=== PATIENT | male | born 1970 | race Caucasian/White ===

== ENCOUNTER 2018-12-08 13:15 | Outpatient (CLI) ==
[2013-08-02 22:06] VITALS: BMI 29.9
--- NOTE | 2018-12-08 14:18 | DI ---
EXAM: Two views of the chest. History: Chest pain and back pain. Comparison: Chest radiograph 08/13/2016 Findings: Heart size is normal. No focal consolidation. No appreciable pleural fluid and no pneumo thorax. No acute osseous abnormalities. Impression: No acute cardiopulmonary process
== END 2018-12-08 13:16 | disposition home or self-care (01) ==
LOC: RAD 13:15
PROVIDERS: ATTEND Internal Medicine
DX: M54.9 Dorsalgia, unspecified (principal); N18.3 Chronic kidney disease, stage 3 (moderate)

== ENCOUNTER 2023-06-29 09:06 | Observation (INO) ==
[2023-06-29] MEDS ORDERED: DUONEB NEB ONE (09:35)
--- NOTE | 2023-06-29 09:47 | ED.PDOC ---
General ED Provider: Dr. SANDRA FAUSTIN MD Chief Complaint: Respiratory Complaint Stated Complaint: Cc: SOB and Dyspnea on exertion. Had some moderate dull headache, generalized body aches and coughing. Notice his lips was slightly blue on Wednesday, especially when he get up to shower or do a load of laundry. Had temp of 100 on Wednesday. No sore throat but chronic nasal drainage. This AM, his chest feels tight like someone is "bear-hugging him" Still occasional cough, non-productive. Wheezing at time. "Just can't catch his breath" and reported his sat was in the high 80's. No history of HTN, DM, COPD or cardiac history. Hx of elevated lipids. Doesn't smoke. Had COVID vaccine and booster last year. 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 Time Seen by Provider: 06/29/23 09:25 Mode of Arrival: Walk-In Information Source: Patient Exam Limitations: No limitations Primary Care Provider: CARLOS BACON MD Referred to ED by: Other (self) Nursing and Triage Documentation Reviewed and Agree: Yes Respiratory Complaint Exam Shortness of Air Complaint/Exam Onset/Duration: Wednesday Symptoms Are: Worse Timing: Intermittent Initial Severity: Moderate Current Severity: Moderate Character: Reports Dyspnea on exertion Aggravating: Reports Movement (exertion) Alleviating: Reports Upright position Associated Signs and Symptoms: Reports Cough, Wheezing, Chest pain with cough, Fever and Diaphoresis; Denies Chest pain, Calf pain, Edema or Rapid breathing History of Healthcare-Acquired Pneumonia: No Pulmonary Embolism Risk Factors: Denies Previous PE or Smoking Cardiac Risk Factors: Reports Elevated lipids; Denies Smoking, Diabetes, Hypertension or CHF Home Oxygen Use: No Recent Stress Test: No Respiratory Distress: Moderate Stridor Present: No Tracheal Deviation: No Subcutaneous Emphysema: No Accessory Muscle Use: No Retractions: Not Present Diminished Breath Sounds: Yes Prolonged Expiratory Phase: No Unable to Speak Full Sentences: No Leg Swelling: Yes Jb's Sign Present: No Grunting Respirations: No Kussmaul Respirations: No Differential Diagnoses: CHF, Pulmonary Edema, Pneumonia, Pneumothorax and Pulmonary Embolism Quality Indicators for AMI: ASA Given if indicated Quality Indicator For Non-Traumatic Chest Pain/Syncope: EKG Performed Review of Systems Review Of Systems Constitutional: Reports Fever and Weakness Eyes: Reports No symptoms; Denies Photophobia Ears, Nose, Mouth, Throat: Reports Nose discharge; Denies Ear pain, Ear discharge, Nose pain or Throat swelling Respiratory: Reports Cough, Shortness of Breath and Wheezing Cardiac: Denies Chest pain or Edema GI: Reports No symptoms : Reports No symptoms Musculoskeletal: Reports Muscle pain (myalgia) Skin: Reports No symptoms Neurological: Reports Headache All Other Systems: Reviewed and Negative [facility] Medical History (Updated 06/29/23 @ 14:03 by SANDRA FAUSTIN MD) Compression fracture of body of thoracic vertebra S22.000A - Wedge compression fracture of unspecified thoracic vertebra, initial encounter for closed fracture (ICD-10) History of herpes zoster Z86.19 - Personal history of other infectious and parasitic diseases (ICD- 10) Social History Smoking and tobacco status: Never smoker Physical Exam Physical Exam Appearance: Reports Ill-appearing Ill-appearing: Mild Pain Distress: Mild Eyes: Reports BONNY and EOMI ENT: Reports Ears normal Neck: Supple Respiratory: Reports Breath sounds diminished, Respirations nonlabored and Rhonchi; Denies Wheezes or Retractions Cardiovascular: Reports RRR, Pulses normal, No rub and No murmur GI/: Reports Soft, Nontender, No masses, Bowel sounds normal and No Organomegaly Musculoskeletal: Reports Normal strength, ROM intact and No edema Skin: Reports Warm, Dry and Normal color Neurological: Reports Sensation intact and Motor intact Psychiatric: Reports Affect appropriate and Mood appropriate Critical Care Note Critical Care Note Total Critical Care Time (mins): 0 Course Course 06/29/23 09:50 06/29/23 09:50 Orders, Labs, Meds: Lab Review 06/29/23 06/29/23 06/29/23 09:15 09:50 12:17 WBC 5.35 RBC 5.26 Hgb 15.8 Hct 46.4 MCV 88.2 MCH 30.0 MCHC 34.1 RDW Coeff of Jerman 12.4 Plt Count 204 Immature Gran % (Auto) 0.9 Neut % (Auto) 50.8 Lymph % (Auto) 30.7 [place] % (Auto) 13.1 H Eos % (Auto) 3.6 Baso % (Auto) 0.9 Neut # (Auto) 2.7 Lymph # (Auto) 1.6 [place] # (Auto) 0.7 Eos # (Auto) 0.2 Baso # (Auto) 0.1 Immature Gran # (Auto) 0.1 Sodium 137.4 Potassium 4.11 Chloride 103.6 Carbon Dioxide 25.7 Anion Gap 12.21 BUN 14.0 Creatinine 1.06 Estimated GFR (MDRD) 74.00 BUN/Creatinine Ratio 13.20 Glucose 112.8 H Calcium 9.09 Total Bilirubin 0.63 AST 52.7 ALT 29.5 Alkaline Phosphatase 66.6 Troponin I < 0.012 < 0.012 NT-Pro-B Natriuret Pep < 20 Total Protein 8.25 H Albumin 4.60 Globulin 3.65 Albumin/Globulin Ratio 1.26 D-Dimer 289.93 Influ A Molecular Assay Negative by naat Influ B Molecular Assay Negative by naat SARS CoV-2 RNA Rapid FRANCHESKA Negative Orders Category Date Time Status EKG-(ED ONLY) Stat CARDIO 06/29/23 09:35 Completed NEBULIZER TREATMENT Routine CARDIO 06/29/23 11:30 Completed NEBULIZER TREATMENT Routine CARDIO 06/29/23 11:36 Ordered NPO REMINDER: IMAGING ONCE CARE 06/29/23 12:28 Active Saline Lock [ED IV/MEDIPORT/POWERPORT] .ONCE EMERGENCY 06/29/23 09:35 Active CBC W/ AUTO DIFF Stat LAB 06/29/23 09:50 Completed CMP [COMPREHENSIVE METABOLIC PANEL] Stat LAB 06/29/23 09:50 Completed D-DIMER Stat LAB 06/29/23 09:50 Completed FLU A & B MOLECULAR [FLU A/B MOLECULAR] Stat LAB 06/29/23 09:15 Completed NT-PROBNP(ED) Stat LAB 06/29/23 09:50 Completed SARS COV-2 RNA RAPID FRANCHESKA Stat LAB 06/29/23 09:15 Completed TROPONIN I Stat LAB 06/29/23 09:50 Completed TROPONIN I Stat LAB 06/29/23 12:17 Completed 0.9 % Sodium Chloride [Saline Flush] Meds 06/29/23 09:35 Active 1 syr IVF PRN PRN Albuterol Sulfate 0.083% Neb [Albuterol 0.083% Neb] Meds 06/29/23 11:35 Discontinued 2.5 mg NEB ONCE ONE Albuterol Sulfate 0.083% Neb [Albuterol 0.083% Neb] Meds 06/29/23 14:00 Active 2.5 mg NEB RTTID Aspirin [Aspirin Chewable] Meds 06/29/23 09:52 Discontinued 324 mg PO ONCE STA Dexamethasone Sod Phosphate [Decadron] Meds 06/29/23 13:25 Discontinued 4 mg IVP ONCE STA Ipratropium/Albuterol Neb [Duoneb] Meds 06/29/23 09:35 Discontinued 3 ml NEB ONCE ONE Methylprednisolone Sod Succ/Pf [Solu-Medrol 125 mg] Meds 06/29/23 11:40 Discontinued 80 mg IVP ONCE ONE Methylprednisolone Sod Succ/Pf [Solu-Medrol 125 mg] Meds 06/29/23 12:00 Discontinued 80 mg IVP ONCE ONE CHEST, 2 VIEWS PA & LAT Stat RADS 06/29/23 09:35 Completed CTA CHEST PE PROTOCOL Stat RADS 06/29/23 12:28 Completed Medications Generic Name Dose Route Start Last Admin Trade Name Freq PRN Reason Stop Dose Admin Albuterol Sulfate 2.5 mg 06/29/23 14:00 06/29/23 13:50 Albuterol Sulfate 0.083% Vial.Neb NEB 2.5 mg RTTID CARMINE Administration Sodium Chloride 1 syr 06/29/23 09:35 0.9% Sodium Chloride 10 Ml Disp.Syrin IVF PRN PRN To flush IV Discontinued Medications Generic Name Dose Route Start Last Admin Trade Name Freq PRN Reason Stop Dose Admin Albuterol Sulfate 2.5 mg 06/29/23 11:35 06/29/23 11:46 Albuterol Sulfate 0.083% Vial.Neb NEB 06/29/23 11:36 2.5 mg ONCE ONE Administration Albuterol/Ipratropium 3 ml 06/29/23 09:35 06/29/23 09:45 Ipratropium/Albuterol Vial.Neb NEB 06/29/23 09:36 3 ml ONCE ONE Administration Aspirin 324 mg 06/29/23 09:52 06/29/23 09:59 Aspirin 81 Mg Tab.Chew PO 06/29/23 09:53 324 mg ONCE STA Administration Dexamethasone Sodium Phosphate 4 mg 06/29/23 13:25 06/29/23 13:43 Dexamethasone Sod Phos 4 Mg/Ml Inj IVP 06/29/23 13:26 Not Given ONCE STA Methylprednisolone Sodium Succinate 80 mg 06/29/23 12:00 Methylprednisolone Sod Succ/Pf 125 Mg/2 Ml Vial IVP 06/29/23 12:01 ONCE ONE Methylprednisolone Sodium Succinate 80 mg 06/29/23 11:40 06/29/23 11:48 Methylprednisolone Sod Succ/Pf 125 Mg/2 Ml Vial IVP 06/29/23 11:41 80 mg ONCE ONE Administration Vital Signs: Temp Pulse Resp BP Pulse Ox 06/29/23 09:07 98.4 F 89 24 H 166/104 H 97 Discharge Plan Discharge Patient Disposition: PLACED OBSERVATION Discharge Problem: Acute dyspnea Prescriptions: No Action atorvastatin 20 mg tablet 20 mg PO BEDTIME Qty: 90 1RF omeprazole 20 mg capsule,delayed release(DR/EC) See Rx Instructions .ROUTE .COMPLEX Qty: 90 1RF Dose Instruction: TAKE ONE CAPSULE BY MOUTH DAILY Rx Instructions: TAKE ONE CAPSULE BY MOUTH DAILY Claritin Liqui-Gel 10 MG capsule 10 mg PO DAILY Nexletol 180 mg tablet 180 mg PO QDAY Qty: 90 1RF Did you review [place] LAYOUT ARTIST for ALL controlled substances?: Not Applicable ED Provider: SANDRA FAUSTIN Condition: Fair Physician Progress Note: [] Time is 1400 hr. Devyn had stop by to see patient and said he'll very likely admit. We were waiting for 2nd troponin (negative) and CTA of chest neg for PE but some diffuse vague areas of ground glass density. Discussed with hospitalist about admission. Call back to Devyn and busy and not taking messages- will call him back.
[2023-06-29] MEDS ORDERED: ASPIRIN CHEWABLE PO STA (09:52)
[2023-06-29 09:56] LABS: BASOPHILS # (AUTO) 0.1 K/uL (0-0.2); BASOPHILS % (AUTO) 0.9 % (0.0-3.0); EOSINOPHILS # (AUTO) 0.2 K/ul (0.0-0.7); EOSINOPHILS % (AUTO) 3.6 % (0.0-7.0); HEMATOCRIT 46.4 % (42.0-52.0); HEMOGLOBIN 15.8 g/dl (14.0-18.0); IMMATURE GRANULOCYTE # (AUTO) 0.1 (0.0-1.0); IMMATURE GRANULOCYTE % (AUTO) 0.9 % (0.0-5.0); LYMPHOCYTES # (AUTO) 1.6 K/uL (0.60-3.4); LYMPHOCYTES % (AUTO) 30.7 (10.0-50.0); MEAN CORPUSCULAR HGB CONC 34.1 (31.8-35.4); MEAN CORPUSCULAR VOLUME 88.2 fl (80.0-94.0); MONOCYTES # (AUTO) 0.7 K/uL (0.4-2.0); MONOCYTES % (AUTO) 13.1 (0-10); NEUTROPHILS # (AUTO) 2.7 K/ul (2.0-6.9); NEUTROPHILS % (AUTO) 50.8 % (42.2-75.2); PLATELET COUNT 204 10^3/uL (140-440); RDW COEFFICIENT OF VARIATION 12.4 % (11.6-14.8); RED BLOOD COUNT 5.26 10^6/ul (4.70-6.10); WHITE BLOOD COUNT 5.35 K/ul (4.2-10.2)
[2023-06-29 10:09] LABS: ALANINE AMINOTRANSFERASE 29.5 U/L (0-50); ALKALINE PHOSPHATASE 66.6 U/L (38-126); ASPARTATE AMINO TRANSFERASE 52.7 U/L (17-59); BILIRUBIN,TOTAL 0.63 mg/dL (0.2-1.3); CALCIUM 9.09 mg/dL (8.4-10.2); CARBON DIOXIDE 25.7 mmol/L (22-30.0); CHLORIDE 103.6 mmol/L (98-107); CREATININE 1.06 mg/dL (0.60-1.10); GLUCOSE 112.8 mg/dL (74-106); POTASSIUM 4.11 mmol/L (3.5-5.1); SODIUM 137.4 mmol/L (134.5-145); TOTAL PROTEIN 8.25 g/dL (6.3-8.2)
--- NOTE | 2023-06-29 10:11 | DI ---
EXAM: CHEST, 2 VIEWS. HISTORY: Dyspnea COMPARISON: 12/08/2018 FINDING/IMPRESSION: Cardiomediastinal countours appear stable. There is no focal pulmonary consolid ation. No pleural effusion or pneumothorax. No acute cardiopulmonary process.
[2023-06-29 10:13] LABS: MOLECULAR FLU A NEGATIVE BY NAAT (NEGATIVE); MOLECULAR FLU B NEGATIVE BY NAAT (NEGATIVE)
[2023-06-29 10:22] LABS: TROPONIN I < 0.012 ng/ml (0.0000-0.120)
[2023-06-29 10:33] LABS: SARS COV-2 RNA RAPID NAAT NEGATIVE (NEGATIVE)
[2023-06-29] MEDS ORDERED: SOLU-MEDROL 40 MG IVP ONE (11:30)
[2023-06-29] MEDS ORDERED: ALBUTEROL 0.083% NEB NEB ONE (11:35)
[2023-06-29] MEDS ORDERED: SOLU-MEDROL 125 MG IVP ONE ×4 (11:40→21:00)
[2023-06-29] MEDS ORDERED: DECADRON IVP STA (13:25)
--- NOTE | 2023-06-29 13:59 | CT ---
EXAM: CHEST CTA WITH CONTRAST (PULMONARY ARTERY) HISTORY: Chest pain and shortness of breath. TECHNIQUE: CTA acquisition of the chest from the thoracic inlet to the upper abdomen following IV con trast administration timed to filling of the pulmonary artery. 3D/MIP/VR images were utilized. CT Dose Reduction Techniques Employed: Yes. COMPARISON: None. FINDINGS: Pulmonary Embolism: - Diagnostic quality: Adequate. - Central (Main/Lobar/Interlobar): No embolus. - Peripheral (Segmental/Subsegmental): No embolus. Lung Parenchyma and Airways: There are diffuse vague areas of ground-glass density which could be rel ated to small airways disease or gas trapping. No suspicious pulmonary nodule. No pleural effusion o r thickening. No pneumothorax. Thoracic Inlet, Mediastinum, and Bridgett: No mass. No lymphadenopathy. Heart, Vessels, and Pericardium: No aortic anuerysm. The heart chambers are not enlarged. There is n o pericardial effusion or thickening. Bones and Soft Tissues: There is no fracture or lytic lesion. Chest wall soft tissues are unremarkab le. Upper Abdomen: There has been cholecystectomy. IMPRESSION: 1. No evidence of pulmonary artery embolism. 2. Findings suggesting diffuse pulmonary gas trapping or small airways disease/bronchiolitis. All CT scans are performed using dose optimization techniques as appropriate to the performed exam an d include at least one of the following: Automated exposure control, adjustment of the mA and/or kV according t o size, and the use of iterative reconstruction technique.
[2023-06-29] MEDS ORDERED: ALBUTEROL 0.083% NEB NEB SCH (14:00)
[2023-06-29 15:06] VITALS: BMI 33.3
[2023-06-29 15:07] LABS: ABG O2 HGB 93.6 % (95-100); ABG PH 7.43 (7.35-7.45); BEecf 1.6 (-2.0-3.0); COHb 1.4 (0.5-1.5); HCO3 25.9 (21-28); MetHb 0.8 (0-1.5); TCO2 27.1 (19-24); sO2 94.5 % (94-98); tHb 16.3 g/dl (11.7-17.4)
[2023-06-29] MEDS: DEXTROSE 5%-1/2NS IV SOLUTION 1,000 ML IV SCH (15:42)
[2023-06-29 17:27] LABS: BILIRUBIN,URINE Negative (NEGATIVE); CLARITY,URINE Clear (CLEAR); COLOR,URINE Yellow (YELLOW); GLUCOSE, URINE (UA) Negative (NEGATIVE); KETONES,URINE Negative (NEGATIVE); LEUKOCYTE ESTERASE ,URINE Negative (NEGATIVE); NITRITE,URINE Negative (NEGATIVE); PROTEIN,URINE 2+ (NEGATIVE); URINE, BLOOD Trace-intact (NEGATIVE); UROBILINOGEN,URINE 0.2 (0.2)
[2023-06-29 17:59] LABS: URINE RBC, MICROSCOPIC 0-2 (0-2)
[2023-06-29] MEDS: DUONEB NEB SCH (19:45)
[2023-06-29] MEDS: DOXYCYCLINE HYCLATE PO SCH (20:42)
[2023-06-29] MEDS: SOLU-MEDROL 125 MG IVP SCH (20:42)
[2023-06-30] MEDS: DEXTROSE 5%-1/2NS IV SOLUTION 1,000 ML IV SCH (02:53)
[2023-06-30] MEDS: DUONEB NEB SCH ×4 (04:50→19:57)
[2023-06-30] MEDS: SOLU-MEDROL 125 MG IVP SCH ×3 (05:47→20:41)
[2023-06-30] MEDS: PRILOSEC PO SCH (05:47)
[2023-06-30 07:07] LABS: BASOPHILS % (AUTO) 0.1 % (0.0-3.0); HEMATOCRIT 41.7 % (42.0-52.0); HEMOGLOBIN 14.3 g/dl (14.0-18.0); IMMATURE GRANULOCYTE # (AUTO) 0.1 (0.0-1.0); IMMATURE GRANULOCYTE % (AUTO) 0.8 % (0.0-5.0); LYMPHOCYTES # (AUTO) 0.8 K/uL (0.60-3.4); LYMPHOCYTES % (AUTO) 5.3 (10.0-50.0); MEAN CORPUSCULAR HEMOGLOBIN 30.3 pg (27.0-31.0); MEAN CORPUSCULAR HGB CONC 34.3 (31.8-35.4); MEAN CORPUSCULAR VOLUME 88.3 fl (80.0-94.0); MONOCYTES # (AUTO) 0.7 K/uL (0.4-2.0); MONOCYTES % (AUTO) 4.9 (0-10); NEUTROPHILS # (AUTO) 12.6 K/ul (2.0-6.9); NEUTROPHILS % (AUTO) 88.9 % (42.2-75.2); PLATELET COUNT 204 10^3/uL (140-440); RDW COEFFICIENT OF VARIATION 12.2 % (11.6-14.8); RED BLOOD COUNT 4.72 10^6/ul (4.70-6.10); WHITE BLOOD COUNT 14.16 K/ul (4.2-10.2)
[2023-06-30 07:24] LABS: ALBUMIN 4.16 g/dL (3.5-5.0); ALKALINE PHOSPHATASE 52.4 U/L (38-126); ASPARTATE AMINO TRANSFERASE 37.7 U/L (17-59); BILIRUBIN,TOTAL 0.44 mg/dL (0.2-1.3); BLOOD UREA NITROGEN 19.3 mg/dL (9-20); CALCIUM 8.64 mg/dL (8.4-10.2); CARBON DIOXIDE 22.6 mmol/L (22-30.0); CHLORIDE 102.8 mmol/L (98-107); CREATININE 1.15 mg/dL (0.60-1.10); GLUCOSE 230.4 mg/dL (74-106); POTASSIUM 3.74 mmol/L (3.5-5.1); SODIUM 135.3 mmol/L (134.5-145); TOTAL PROTEIN 7.26 g/dL (6.3-8.2)
[2023-06-30 07:35] LABS: ALANINE AMINOTRANSFERASE 38.5 U/L (0-50)
[2023-06-30] MEDS: CLARITIN PO SCH (08:46)
[2023-06-30] MEDS: DOXYCYCLINE HYCLATE PO SCH ×2 (08:46→20:40)
[2023-06-30] MEDS: BEMPEDOIC ACID 180 MG PO SCH (08:46)
[2023-06-30] MEDS: LIPITOR PO SCH (08:46)
[2023-06-30 09:10] LABS: ABG O2 HGB 94.2 % (95-100); ABG PH 7.41 (7.35-7.45); BEecf -1.8 (-2.0-3.0); COHb 1.3 (0.5-1.5); HCO3 22.8 (21-28); MetHb 0.9 (0-1.5); TCO2 23.9 (19-24)
[2023-06-30] MEDS: CARDIZEM PO SCH ×2 (12:48→20:40)
[2023-07-01] MEDS: DUONEB NEB SCH ×2 (04:47→10:16)
[2023-07-01] MEDS: SOLU-MEDROL 125 MG IVP SCH ×2 (05:25→12:55)
[2023-07-01 05:47] LABS: HEMOGLOBIN 14.1 g/dl (14.0-18.0); IMMATURE GRANULOCYTE # (AUTO) 0.2 (0.0-1.0); LYMPHOCYTES % (AUTO) 4.7 (10.0-50.0); MEAN CORPUSCULAR HEMOGLOBIN 30.2 pg (27.0-31.0); MEAN CORPUSCULAR HGB CONC 33.6 (31.8-35.4); MEAN CORPUSCULAR VOLUME 89.9 fl (80.0-94.0); MONOCYTES # (AUTO) 1.3 K/uL (0.4-2.0); MONOCYTES % (AUTO) 6.4 (0-10); NEUTROPHILS # (AUTO) 17.9 K/ul (2.0-6.9); NEUTROPHILS % (AUTO) 87.9 % (42.2-75.2); PLATELET COUNT 220 10^3/uL (140-440); RDW COEFFICIENT OF VARIATION 12.6 % (11.6-14.8); RED BLOOD COUNT 4.67 10^6/ul (4.70-6.10)
[2023-07-01 05:49] LABS: WHITE BLOOD COUNT 20.41 K/ul (4.2-10.2)
[2023-07-01 05:50] LABS: ALBUMIN 4.05 g/dL (3.5-5.0); ALKALINE PHOSPHATASE 53.5 U/L (38-126); ASPARTATE AMINO TRANSFERASE 34.1 U/L (17-59); BILIRUBIN,TOTAL 0.36 mg/dL (0.2-1.3); BLOOD UREA NITROGEN 23.6 mg/dL (9-20); CALCIUM 8.82 mg/dL (8.4-10.2); CARBON DIOXIDE 23.5 mmol/L (22-30.0); CHLORIDE 104.6 mmol/L (98-107); CREATININE 1.11 mg/dL (0.60-1.10); GLUCOSE 225.9 mg/dL (74-106); POTASSIUM 4.6 mmol/L (3.5-5.1); SODIUM 136.4 mmol/L (134.5-145); TOTAL PROTEIN 6.92 g/dL (6.3-8.2)
[2023-07-01 06:08] LABS: ALANINE AMINOTRANSFERASE 34.8 U/L (0-50)
[2023-07-01] MEDS: DOXYCYCLINE HYCLATE PO SCH (09:36)
[2023-07-01] MEDS: PRILOSEC PO SCH (09:36)
[2023-07-01] MEDS: CLARITIN PO SCH (09:36)
[2023-07-01] MEDS: CARDIZEM PO SCH (09:37)
[2023-07-01] MEDS: BEMPEDOIC ACID 180 MG PO SCH (09:37)
[2023-07-01] MEDS: LIPITOR PO SCH (09:37)
[2023-07-01 09:43] VITALS: RESP 18
--- NOTE | 2023-07-01 10:04 | PCM.PROG ---
Attending Provider: ATTENDING PROVIDER: Dr. CARLOS BACON MD This patient is seen with Tika Freeman, Nurse Practitioner. DATE OF SERVICE: 07/01/23 SUBJECTIVE: This 52 year old /WHITE M was hospitalized 06/29/23. Sating 95% on room air. Has been up and moving around. Feels shortness of breath has significantly improved. States cough is now becoming productive. Respiratory panel is pending. REVIEW OF SYSTEMS: CONSTITUTIONAL: No night sweats. No fatigue, malaise, lethargy. No fever or chills. HEENT: Eyes: No visual changes. No eye pain. No eye discharge. ENT: No runny nose. No epistaxis. No sinus pain. No odynophagia. No congestion. RESPIRATORY: Cough, no congestion. No hemoptysis. Shortness of breath. CARDIOVASCULAR: No angina symptoms. No CHF symptoms. No atypical chest pain for CAD. No palpitations. No orthopnea.. GASTROINTESTINAL: No abdominal pain. No nausea or vomiting. No diarrhea or constipation. No hematemesis. No hematochezia. GENITOURINARY: No urgency. No frequency. No dysuria. No hematuria. No obstructive symptoms. No discharge. No pain. No significant abnormal bleeding. MUSCULOSKELETAL: No musculoskeletal pain; no joint swelling. NEUROLOGICAL: Awake, alert, oriented to time, place and person. No headache. No neck pain. No syncope. No seizures. No dizziness. PSYCHIATRIC: Not anxious. No depression. No suicidal thoughts. No homicidal thoughts. SKIN: No rash. No lesions. No wounds. ENDOCRINE: No unexplained weight loss. No weight gain. HEMATOLOGIC/LYMPHATIC: No anemia. No purpura. No petechiae. No prolonged or excessive bleeding. No palpable lymph nodes. PHYSICAL EXAMINATION: GENERAL: The patient is awake, alert and oriented, sitting in bed in no distress. VITAL SIGNS: Temperature 98.6 F, Pulse 100, Respiratory Rate 19, BP 137/74, Pulse Ox 96% HEENT: Head normocephalic, atraumatic. Eyes: Extraocular muscles are intact. Pupils are equal, round and reactive to light and accommodation. Ears: No lesions. Nose appeared normal. Throat: No exudate or erythema. NECK: Supple. No JVD, no carotid bruit. No lymphadenopathy or thyromegaly. LUNGS: Severely diminished breath sounds. Clear to auscultation. Percussion note normal. Chest symmetrical. HEART: S1, S2, no S3. No murmurs. No cyanosis or clubbing. No ascites. Pulses: Dorsalis pedis and posterior tibial pulses +1 to +2 both sides. ABDOMEN: Soft. Non-tender. Bowel sounds active. No CVA tenderness. No mass felt. EXTREMITIES: No edema. Full range of motion of all extremities, equal. NEUROLOGIC: No focal deficit. Cranial nerves II through XII are grossly intact. No headache. No double vision. SKIN: Not dry. Intact. Turgor-normal. LYMPHATIC: No palpable lymph nodes/no lymphedema. MUSCULOSKELETAL: Normal joints with no swelling. Muscle tone is normal. LAB REVIEW: 07/01/23 05:00 07/01/23 05:00 07/01/23 05:00: WBC 20.41 H D, RBC 4.67 L, Hgb 14.1, Hct 42.0, MCV 89.9, MCH 30.2, MCHC 33.6, RDW Coeff of Jerman 12.6, Plt Count 220, Immature Gran % (Auto) 1.0, Neut % (Auto) 87.9 H, Lymph % (Auto) 4.7 L, [place] % (Auto) 6.4, Eos % (Auto) 0.0, Baso % (Auto) 0.0, Neut # (Auto) 17.9 H, Lymph # (Auto) 1.0, [place] # (Auto) 1.3, Eos # (Auto) 0.0, Baso # (Auto) 0.0, Immature Gran # (Auto) 0.2, Sodium 136.4, Potassium 4.60, Chloride 104.6, Carbon Dioxide 23.5, Anion Gap 12.90, BUN 23.6 H, Creatinine 1.11 H, Estimated GFR (MDRD) 70.00, BUN/Creatinine Ratio 21.26, Glucose 225.9 H, Calcium 8.82, Total Bilirubin 0.36, AST 34.1, ALT 34.8, Alkaline Phosphatase 53.5, Total Protein 6.92, Albumin 4.05, Globulin 2.87, Albumin/Globulin Ratio 1.41 06/30/23 09:05: Puncture Site Rrad, Base Excess -1.8, O2 Saturation 95.0, ABG pH 7.41, ABG pCO2 36.0, ABG pO2 75.0 L, ABG HCO3 22.8, ABG Total CO2 23.9, Jeramie Test Pos, Hemoglobin 0.9, Oxyhemoglobin 94.2 L, Carboxyhemoglobin 1.3, Total Hemoglobin 16.0, FiO2 % 21.0 06/30/23 07:02: Hemoglobin A1c 6.05 H ASSESSMENT: Please see below. 1. Acute respiratory failure 2. Shortness of breath 3. Acute bronchitis. PLAN: 1. Discharge home 2. Prednisone 20mg BID for three days then daily for 4 days 3. Albuterol inhaler two puff TID 4. PFT 5. Three step 6. Doxycycline 100mg BID for 7 days Plan and coordination of the patient's care discussed in the presence of Nurse Research and nurse. SCRIBED BY: Shweta DOWNS scribed while in presence of service performed by Tika Freeman APRN on 07/01/23 ([id number])
[2023-07-01 11:28] VITALS: BP 131/70; PULSE 93; TEMP 97.7
[2023-07-01 12:14] LABS: IGG P18 AB Absent (.); IGG P23 AB Absent (.); IGG P28 AB Absent (.); IGG P30 AB Absent (.); IGG P39 AB Absent (.); IGG P41 AB Absent (.); IGG P45 AB Absent (.); IGG P58 AB Absent (.); IGG P66 AB Absent (.); IGG P93 AB Absent (.); IGM P23 AB Absent (.); IGM P39 AB Absent (.); IGM P41 AB Absent (.); LYME IGG WB INTERP Negative (.); LYME IGM WB INTERP Negative (.)
--- NOTE | 2023-07-01 14:29 | PN ---
DATE OF SERVICE: 06/30/23 SUBJECTIVE: 52 year old white male has been hospitalized with acute respiratory failure, acute dyspnea along with history of fever for 2-3 days, low grade. The patient's condition seems to have improved but he is still short of breath on exertion. He says that he chewed tobacco last night and that triggered his shortness of breath for a while. REVIEW OF SYSTEMS: CONSTITUTIONAL: No night sweats. No fatigue, malaise, lethargy. No fever or chills. HEENT: Eyes: No visual changes. No eye pain. No eye discharge. ENT: No runny nose. No epistaxis. No sinus pain. No sore throat. No odynophagia. No congestion. RESPIRATORY: No cough, no congestion. No hemoptysis. No shortness of breath. CARDIOVASCULAR: No angina symptoms. No CHF symptoms. No atypical chest pain for CAD. No palpitations. No PND. No orthopnea. GASTROINTESTINAL: No abdominal pain. No nausea or vomiting. No diarrhea or constipation. No hematemesis. No hematochezia. Appetite is practically normal. GENITOURINARY: No urgency. No frequency. No dysuria. No hematuria. No obstructive symptoms. No discharge. No pain. No significant abnormal bleeding. MUSCULOSKELETAL: No musculoskeletal pain; no joint swelling. NEUROLOGICAL: No headache. No neck pain. No syncope. No seizures. No dizziness. PSYCHIATRIC: Not anxious. No depression. No suicidal thoughts. No homicidal thoughts. SKIN: No rash. No lesions. No wounds. ENDOCRINE: No unexplained weight loss. No weight gain. HEMATOLOGIC/LYMPHATIC: No anemia. No purpura. No petechiae. No prolonged or excessive bleeding. No palpable lymph nodes. PHYSICAL EXAMINATION: GENERAL: The patient is oriented to time, place and person. VITAL SIGNS: Temperature 98, pulse 100, respiratory rate 20, blood pressure 124/77 and pulse ox 95% on room air. HEENT: Head normocephalic, atraumatic. Eyes: Extraocular muscles are intact. Pupils are equal, round and reactive to light and accommodation. Ears: No lesions. Nose appeared normal. Throat: No exudate or erythema. NECK: Supple. No JVD, no carotid bruit. No lymphadenopathy or thyromegaly. LUNGS: Decreased breath sounds but clear to auscultation. Percussion note normal. Chest symmetrical. HEART: S1, S2, no S3. No murmurs. No cyanosis or clubbing. No ascites. Pulses: Dorsalis pedis and posterior tibial pulses +1 to +2 bilaterally. ABDOMEN: Soft. Nontender. Bowel sounds active. No CVA tenderness. No mass felt. EXTREMITIES: No edema. Full range of motion of all extremities, equal. NEUROLOGIC: No focal deficit. Cranial nerves II through XII are grossly intact. No headache. No double vision. SKIN: Not dry. Intact. Turgor - normal. LYMPHATIC: No palpable lymph nodes/no lymphedema. MUSCULOSKELETAL: Normal joints with no swelling. Muscle tone is normal. LABS: Creatinine 1.1, BUN 19, potassium 3.7, WBC 14,000 because of steroids, Hgb 14, blood sugar 230. A1c a couple of months ago was 5.6 ASSESSMENT: 1. Shortness of breath, abnormal CT angiogram with ground glass on the right. 2. Viral syndrome with symptoms. PLAN: 1. Continue steroids, antibiotics 2. Monitor telemetry 3. ABG on room air to be repeated. 4. Oxygen saturation 5. Will do PFT 6. Echo to evaluation function TIME SPENT: More than 35 minutes. Plan and coordination of the patient's care discussed in the presence of nurse. NEFTALI
--- NOTE | 2023-07-01 14:49 | PN ---
DATE OF SERVICE: 07/01/23 SUBJECTIVE: The patient was seen and examined by Nurse Practitioner. The patient's condition has improved, he is asymptomatic. His oxygen saturation is 97% on room air. REVIEW OF SYSTEMS: CONSTITUTIONAL: No night sweats. No fatigue, malaise, lethargy. No fever or chills. HEENT: Eyes: No visual changes. No eye pain. No eye discharge. ENT: No runny nose. No epistaxis. No sinus pain. No sore throat. No odynophagia. No congestion. RESPIRATORY: No cough, no congestion. No hemoptysis. No shortness of breath. CARDIOVASCULAR: No angina symptoms. No CHF symptoms. No atypical chest pain for CAD. No palpitations. No PND. No orthopnea. GASTROINTESTINAL: No abdominal pain. No nausea or vomiting. No diarrhea or constipation. No hematemesis. No hematochezia. GENITOURINARY: No urgency. No frequency. No dysuria. No hematuria. No obstructive symptoms. No discharge. No pain. No significant abnormal bleeding. MUSCULOSKELETAL: No musculoskeletal pain; no joint swelling. NEUROLOGICAL: No headache. No neck pain. No syncope. No seizures. No dizziness. PSYCHIATRIC: Not anxious. No depression. No suicidal thoughts. No homicidal thoughts. SKIN: No rash. No lesions. No wounds. ENDOCRINE: No unexplained weight loss. No weight gain. HEMATOLOGIC/LYMPHATIC: No anemia. No purpura. No petechiae. No prolonged or excessive bleeding. No palpable lymph nodes. PHYSICAL EXAMINATION: HEENT: Head normocephalic, atraumatic. Eyes: Extraocular muscles are intact. Pupils are equal, round and reactive to light and accommodation. Ears: No lesions. Nose appeared normal. Throat: No exudate or erythema. NECK: Supple. No JVD, no carotid bruit. No lymphadenopathy or thyromegaly. LUNGS: Clear to auscultation. Percussion note normal. Chest symmetrical. HEART: S1, S2, no S3. No murmurs. No cyanosis or clubbing. No ascites. Pulses: Dorsalis pedis and posterior tibial pulses +1 to +2 bilaterally. ABDOMEN: Soft. Nontender. Bowel sounds active. No CVA tenderness. No mass felt. EXTREMITIES: No edema. Full range of motion of all extremities, equal. NEUROLOGIC: No focal deficit. Cranial nerves II through XII are grossly intact. No headache. No double vision. SKIN: Not dry. Intact. Turgor - normal. LYMPHATIC: No palpable lymph nodes/no lymphedema. MUSCULOSKELETAL: Normal joints with no swelling. Muscle tone is normal. PLAN: 1. The patient is going to be discharged home on Prednisone and Doxycycline to be taken for three days 2. Phenergan with codeine CONDITION: Stable. TIME SPENT: More than 35 minutes. Plan and coordination of the patient's care discussed in the presence of nurse. NEFTALI
--- NOTE | 2023-07-02 06:48 | ECHO2D ---
Date of Exam: 06/30/2023 Ordering Physician: DR. BACON Room #: 121 Reason for Echo: SHORTNESS OF BREATH M-Mode Normal Adult Results LV Dimensions Normal Adult Results AoV Opening excursions >1.6 >1.6 LVEDD-base- 3.5-5.8 4.0 Ao root dimensions 2.0-3.7 3.5 LVESD-base- 3.1-4.6 L. Atrium dimensions 1.9-3.8 4.1 Post. Wall thickness 0.8-1.1 1.1 IV septum (thickness) 0.7-1.2 1.2 Post. Wall excursion 0.72-1.3 NORMAL Septal motion NORMAL Systolic motion R. Ventricular cavity 1.5-2.0 NORMAL LVEF 60% 83% Paradoxical septal wall motion NORMAL 2-D : ENLARGED LEFT ATRIAL CAVITY, OTHERWISE NORMAL. 2-D M Mode Echocardiogram was performed using apical four chamber and left parasternal long and short axis views. Mitral, tricuspid and aortic valves appear to be normal. Contractility of the left ventricle seems to be normal, so is the cavity size. LEFT ATRIAL CAVITY SIZE IS ENLARGED. Aortic root appears to be normal. There is no pericardial effusion. There is no thrombus noted in the left ventricle or left atrial cavity. M-MODE: MV: NORMAL AV: NORMAL TV: NORMAL PV: NORMAL CHAMBER SIZE: ENLARGED LEFT ATRIAL CAVITY. WALL MOTION: NORMAL PERICARDIUM: NORMAL INTERPRETATION: 1. BORDERLINE LEFT VENTRICULAR HYPERTROPHY WITH ENLARGED LEFT ATRIAL CAVITY. 2. NORMAL VALVES. 3. NORMAL LEFT VENTRICLE SIZE AND LEFT VENTRICULAR CONTRACTILITY. 4. MILD DIASTOLIC DYSFUNCTION (RELAXATION ABNORMALITY). MTDD
--- NOTE | 2023-07-02 09:51 | HP ---
DATE OF SERVICE: 06/29/23 REASON FOR HOSPITALIZATION: Respiratory distress HISTORY OF PRESENT ILLNESS: 51 year old white male was brought to the emergency room by the family because of having dyspnea on exertion. The patient's saturation at home when checked by the was 88% and he was short of breath with history of having onset of fever three days ago, recorded as 101. Today there was no fever, the patient had worked and he may have inhaled dust. In any case the patient was given 2-3 liters of oxygen in the emergency and he felt better. The patient already got a few breathing treatments. When I checked him in the emergency room the patient was feeling a lot better. REVIEW OF SYSTEMS: CONSTITUTIONAL: No night sweats. Fatigue and weakness. No fever or chills. HEENT: Eyes: No visual changes. No eye pain. No eye discharge. ENT: No runny nose. No epistaxis. No sinus pain. No sore throat. No odynophagia. No ear pain. No congestion. RESPIRATORY: Mild cough, no congestion. No hemoptysis. Shortness of breath on exertion. CARDIOVASCULAR: No angina symptoms. No CHF symptoms. No atypical chest pain for CAD. No palpitations. No PND. No orthopnea. GASTROINTESTINAL: No abdominal pain. No nausea or vomiting. No diarrhea or constipation. No hematemesis. No hematochezia. Appetite is normal. GENITOURINARY: No urgency. No frequency. No dysuria. No hematuria. No obstructive symptoms. No discharge. No pain. No significant abnormal bleeding. MUSCULOSKELETAL: No musculoskeletal pain. No joint swelling. No arthritis. NEUROLOGICAL: No headache. No neck pain. No syncope. No seizures. No dizziness. PSYCHIATRIC: Not anxious. No depression. No suicidal thoughts. No homicidal thoughts. SKIN: No rash. No lesions. No wounds. ENDOCRINE: No unexplained weight loss. No weight gain. HEMATOLOGIC/LYMPHATIC: No anemia. No purpura. No petechiae. No prolonged or excessive bleeding. No palpable lymph nodes. PERSONAL/FAMILY/SOCIAL HISTORY: The patient is and lives with the . Nonsmoker. Chews tobacco. MEDICATIONS: Atorvastatin Omeprazole Claritin Nexletol PHYSICAL EXAMINATION: GENERAL: The patient is oriented to time, place and person doesn't seem to be in any distress. VITAL SIGNS: Temperature 98.4, pulse 89, respiratory rate 24, blood pressure 166/104, pulse ox 97% on 2 liters. HEENT: Head normocephalic, atraumatic. Eyes: Extraocular muscles are intact. Pupils are equal, round and reactive to light and accommodation. Ears: No lesions. Nose appeared normal. Throat: No exudate or erythema. NECK: Supple. No JVD, no carotid bruit. No lymphadenopathy or thyromegaly. LUNGS: Decreased breath sounds bilaterally. Harsh breath sounds. Clear to auscultation. Percussion note normal. Chest symmetrical. HEART: S1, S2, no S3. No murmur. No cyanosis or clubbing. No ascites. Pulses: Dorsalis pedis and posterior tibial pulses +2 bilaterally. ABDOMEN: Protuberant. Soft. Nontender. Bowel sounds active. No CVA tenderness. No mass felt. EXTREMITIES: No edema. Full range of motion of all extremities, equal. NEUROLOGIC: No focal deficit. Cranial nerves II through XII are grossly intact. No headache, no double vision or headache. SKIN: Not dry. Intact. Turgor - normal. LYMPHATIC: No palpable lymph nodes/no lymphedema. MUSCULOSKELETAL: Normal joints with no swelling. Muscle tone is normal. LABS: Chest x-ray is normal. ABG were not done. discussed with the ER physician. ProBNP less than 20. Liver profile normal. Creatinine 1, BUN 14, glucose 112. Troponin is normal. Hgb 15, hct 46, WBC 5,300 normal differential. EKG sinus rhythm. No acute changes. ASSESSMENT: 1. Hypoxemia with shortness of breath with history of brief fever, negative chest x-ray could be viral syndrome with pneumonitis 2. Rule out pulmonary embolism 3. History of hypertension 4. Dyslipidemia 5. Status post left nephrectomy, donated the left kidney 6. History of herpes zoster 7. Compression fracture of the body of thoracic vertebra 8. Chronic kidney disease coming from nephrectomy, normal kidney function this time 9. Gastroesophageal reflux disease 10.Overactive bladder PLAN: 1. Observation hospitalization 2. Routine telemetry orders 3. Solu-Medrol 80 Q 8 4. DUO NEBS QID 5. Counseling for weight loss 6. Advised to quit tobacco chewing 7. Continue to monitor oximetry 8. Will do Ehrlichia titers 9. Doxycycline 100mg PO BID daily 10.Repeat COVID test with PCR 11.Echocardiogram to evaluate LV function CONDITION: Stable. TIME SPENT: More than 75 minutes. MTDD
--- NOTE | 2023-07-02 10:35 | DS ---
DATE OF SERVICE: 07/01/23 FINAL DIAGNOSIS: 1. Acute pneumonitis/bronchitis with hypoxemia like viral 2. Hypertension with evidence of LVH with enlarged LA cavity by Echo 3. Obesity 4. Status post left nephrectomy, donated to father 2009 5. Compression fracture thoracic vertebral with fall T7 and T8 2010 6. History of overactive bladder 7. History of herpes zoster 8. Dyslipidemia 9. Chronic kidney disease with practically normal kidney functions now 10.Gastroesophageal reflux disease DISCHARGE INSTRUCTIONS: Discharge home. MEDICATIONS AT DISCHARGE: Cardizem 60mg PO twice a day Albuterol inhaler two puff QID PRN Phenergan with codeine two tsp four times a day for 5 days as needed Doxycycline 100mg BID for 5 days. Nexletol 180mg PO daily LABS: Hgb 14, hct 41, WBC 14,000 normal differential, creatinine 1.1, BUN 19, potassium 3.7, glucose 230. A1c 5.[address] angiogram showed ground glass on the right side, No PE. Chest x-ray normal. EKG sinus rhythm, no acute change, sinus tachycardia noted at times. HOSPITAL COURSE: 52 year old white male hospitalized with hypoxemia with oxygen saturation 88% on room air with distress without having oxygen for few hours after he was brought to the emergency room the patient was given NEBS treatments and steroids. After a few hours he settled down and his saturation on room air started going up to 93-94% and that feeling of having shortness of breath had subsided. At the time of discharge the patient was up and about. His three step test was negative. Oxygen saturation was 97% on room air. The patient did not have any fever, no chills, appetite was normal. Echo showed LVH borderline with enlarged LA cavity. LV function was noted. His LV was hyperdynamic with evidence of systolic dysfunction. The patient was put on Cardizem 60mg twice a day to control his heart rate and blood pressure along with to improve the relaxation phase in his cardiac cycle. The patient strongly advised to quit tobacco chewing and also lose 20-25 pounds, working on his abdominal obesity. Exercise programs discussed. he is to be seen 5 days after for followup. CONDITION: Stable. TIME SPENT: 70 minutes MTDD
--- NOTE | 2023-07-02 10:36 | PN ---
The patient was under observation. ADMISSION DAY: LEVEL 5 REST OF THEM: INTERMEDIATE FINAL DAY: D as in discharge MTDD
== END 2023-07-01 13:05 | disposition home or self-care (01) ==
LOC: ED 09:06 → MEDSURG B 09:06
PROVIDERS: ADMIT Internal Medicine; ATTEND Internal Medicine